=== PATIENT | male | born 1960 | race Caucasian/White ===

== ENCOUNTER 2017-08-12 08:42 | Day surgery (SDC) | payer OTHER ==
[~2017-08-12 08:42] MED LIST: LACTATED RINGERS 1,000 ML IV.SOLN IV ONE; PROPOFOL 500 MG/50 ML VIAL IV ONE; SALINE FLUSH 10 ML DISP.SYRIN IVF ONE
--- NOTE | 2017-08-13 10:57 | GI Report ---
REFERRING PHYSICIAN: Dr. Adela Sandoval [employer] ADJUSTER: Gab Bernabe MD PROCEDURE MEDICATION: Propofol as per anesthesia. INDICATIONS: Patient is a 57-year-old man referred for his first colonoscopy for screening. He denies change in bowel habits or blood in the stool. He denies a family history of colorectal cancer. PROCEDURE PERFORMED: Colonoscopy. PROCEDURE: An Olympus video colonoscope was advanced to the rectum and slowly advanced all the way to the cecum. There is a nonspecific slight friability in the rectosigmoid. It may have been the prep. Mucosa otherwise looks normal. The appendiceal orifice was normal. The terminal ileum was normal. On slow withdrawal, the cecum, ascending colon, and transverse colon with no obvious intraluminal lesions noted. The descending colon and sigmoid, again, a little redundancy but no obvious intraluminal lesions. Retroflexion of the rectum was normal. Patient tolerated the procedure well. FINDINGS: Normal-appearing mucosa to the cecum. RECOMMENDATIONS: 1. A high-fiber diet. 2. Consider re-looking at his colon within 10 years, sooner if clinically indicated. 3. Recommend discontinuing tobacco usage. 4. Follow up with Dr. Sandoval. cc: Dr. Adela DAVIES
== END 2017-08-12 08:44 ==
LOC: OPSURG 08:42
PROVIDERS: ATTEND Internal Medicine Gastroenterology
DX: Z12.11 Encounter for screening for malignant neoplasm of colon (principal)
CPT/HCPCS: J2704; J7120; 45378; S1016